=== PATIENT | male | born 1995 | race Caucasian/White ===

== ENCOUNTER 2016-10-28 04:44 | Emergency (ER) | payer OTHER, SELFPAY ==
[~2016-10-28 04:44] MED LIST: BENTYL-DPS20 MG PO; PEPCID DPS20 MG PO; ZITHROMAX250 MG PO; ZOFRAN8 MG PO
== END 2016-10-28 06:35 | disposition home or self-care (01) ==
DX: N13.2 Hydronephrosis with renal and ureteral calculous obstruction (principal); Z88.1 Allergy status to other antibiotic agents